=== PATIENT | male | born 1955 | race Caucasian/White ===

== ENCOUNTER 2017-06-17 01:08 | Emergency (ER) | payer OTHER ==
[2017-06-17] MEDS ORDERED: Sodium Chloride 0.9% 2.5 ML Syringe FLUSH PRN (01:13)
[2017-06-17] MEDS ORDERED: Sodium Chloride 0.9% 10 ML Syringe FLUSH PRN (01:13)
--- NOTE | 2017-06-17 01:17 | EDM.PDOC ---
ED HPI GENERAL MEDICAL PROBLEM - General Chief Complaint: Chest Pain Stated Complaint: CHEST PAIN Time Seen by Provider: 06/17/17 01:11 - History of Present Illness INITIAL COMMENTS - FREE TEXT/NARRATIVE: HISTORY AND PHYSICAL: History of present illness: The patient is a 61-year-old male who presents with a history of thyroid disease and cardiac disease with midsternal chest pain pressure that started this afternoon. He arrives via EMS after he called because it had persisted and was radiating to bilateral arms. 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 He says he had a stress test about a year ago in [facility] in [place] and it was normal. The patient says he has nitroglycerin at home to use for chest pain which he never uses but he used 2 this evening. He says the pain was there but it was dull prior to shoveling the snow and then it seemed to get worse when he was shoveling the snow. It seemed to improve when he stopped but then it restarted about 2 hours ago and that is when he took 2 nitroglycerin. He did not feel like it helped. Initially he thought the discomfort was more muscular from shoveling the snow. He has no weakness in his arms no abdominal pain no back pain but says that the upper extremity and shoulder pain seems to radiate to his upper neck. He describes the pain as midsternal and pressure-like. He rates it as a 7/10 the ER. He received aspirin via EMS but not nitroglycerin. He's been eating and drinking normally and says he has borderline high cholesterol but he manages it with his diet. He's had no vomiting or diarrhea no diaphoresis with this chest pain he is not dizzy or lightheaded. He has no leg pain or swelling. He is not sure if the chest pain radiates to her shoulders or if that's a separate entity. In the past he has had chest pain but so long ago he cannot recall the character of that. Review of systems: As per history of present illness and below otherwise all systems reviewed and negative. Past medical history: As per history of present illness and as reviewed below otherwise noncontributory. Surgical history: As per history of present illness and as reviewed below otherwise noncontributory. Social history: No reported history of drug or alcohol abuse. Family history: As per history of present illness and as reviewed below otherwise noncontributory. Physical exam: Gen.: Well-developed overweight man who is nontoxic and vital signs been reviewed by me. HEENT: Atraumatic, normocephalic, pupils reactive, negative for conjunctival pallor or scleral icterus, mucous membranes moist, throat clear, neck supple, nontender, trachea midline. Lungs: Clear to auscultation, breath sounds equal bilaterally, chest nontender. Heart: S1S2, regular, negative for clicks, rubs, or JVD. Abdomen: Soft, nondistended, nontender. Negative for masses or hepatosplenomegaly. NABS Pelvis: Stable nontender. Genitourinary: Deferred. Rectal: Deferred. Extremities: Atraumatic, negative for cords or calf pain. Neurovascular unremarkable. Pedal edema or leg asymmetry Neuro: Awake, alert, oriented. Cranial nerves II through XII unremarkable. Cerebellum unremarkable. Motor and sensory unremarkable throughout. Exam nonfocal. Skin: There is no diaphoresis, turgor is normal, no overt rashes or lesions are seen grossly Diagnostics: EKG x 2 chest x-ray CBC CMP INR troponin lipase Therapeutics: IV O2 monitor IV fluids as needed, SL nitroglycerin, please also see notes below. Patient received 4 baby aspirin per EMS prior to arrival Re Eval-after 3 sublingual nitros, the pain is now a 5/7. I will [address] nitro paste and also give a dose of Toradol and morphine as this may be muscular in etiology. We are currently awaiting his blood work. He keeps talking about how it is chest and bilateral shoulder and upper neck pain but with his history is unclear if this is cardiac driven. After the Toradol and morphine the patient says the pain is worse. His troponin has been called to us as a critical from the lab at 0.376. I will DC the Nitropaste and hang a nitro drip. I will plan on flight transfer as a non-STEMI with active chest pain. Lovenox will also be given. 0244: Case is discussed with Dr. Cruz at [facility] in [place] and he is aware of the course of these events. He accepts the transfer and flight team has been notified. He agrees with Lovenox and a nitro drip and would like me to hold the Plavix. Patient is also aware of testing results and need for transfer. Along with the nitroglycerin drip I will give him a dose of fentanyl. Critical care time excluding procedures:31min Impression: Non-STEMI VT with history of PTCA and stent, active pain Definitive disposition and diagnosis as appropriate pending reevaluation and review of above. chest Pain Score (Numeric/FACES): 6 - Related Data Allergies Allergy/AdvReac Type Severity Reaction Status Date / Time No Known Allergies Allergy Verified 06/17/17 01:12 Home Meds: Home Meds Levothyroxine 175 mcg PO ACBRK 06/17/17 [History] Medication For Heartburn 06/17/17 [History] ED ROS GENERAL - Review of Systems Review Of Systems: ROS reveals no pertinent complaints other than HPI. ED EXAM, GENERAL - Physical Exam Exam: See Below (See dictation) Course - Vital Signs Last Recorded V/S: Last Vital Signs Temp 36.0 C 06/17/17 01:14 Pulse 85 06/17/17 02:02 Resp 18 06/17/17 02:02 BP 128/84 06/17/17 02:02 Pulse Ox 98 06/17/17 02:02 - Orders/Labs/Meds Orders: Active Orders 24 hr Category Date Time Status Cardiac Monitoring [RC] . DIRECTED Care 06/17/17 01:12 Active Communication Order [RC] STAT Care 06/17/17 02:42 Ordered EKG Documentation Completion [RC] STAT Care 06/17/17 01:12 Active EKG Documentation Completion [RC] STAT Care 06/17/17 01:55 Active Oxygen Therapy, ED [RC] ASDIRECTED Care 06/17/17 01:12 Active Pulse Oximetry [RC] ASDIRECTED Care 06/17/17 01:12 Active Chest 1V Frontal [CR] Stat Exams 06/17/17 01:12 Taken Enoxaparin [Lovenox] Med 06/17/17 02:43 Once 100 mg SUBCUT ONETIME ONE Nitroglycerin/D5W [Nitroglycerin 25 MG/D5W 250 ML] 250 Med 06/17/17 02:45 Ordered ml IV TITRATE Sodium Chloride 0.9% [Normal Saline] 1,000 ml Med 06/17/17 01:46 Active IV STAT Sodium Chloride 0.9% [Saline Flush] Med 06/17/17 01:13 Active 10 ml FLUSH ASDIRECTED PRN Sodium Chloride 0.9% [Saline Flush] Med 06/17/17 01:13 Active 2.5 ml FLUSH ASDIRECTED PRN Saline Lock Insert [OM.PC] Stat Oth 06/17/17 01:12 Ordered Medication Orders Sodium Chloride (Normal Saline) 1,000 mls @ 999 mls/hr IV STAT ONE Stop: 06/17/17 02:46 Last Admin: 06/17/17 01:47 Dose: 999 mls/hr Sodium Chloride (Saline Flush) 10 ml FLUSH ASDIRECTED PRN PRN Reason: Keep Vein Open Last Admin: 06/17/17 01:10 Dose: 10 ml Sodium Chloride (Saline Flush) 2.5 ml FLUSH ASDIRECTED PRN PRN Reason: Keep Vein Open Last Admin: 06/17/17 01:10 Dose: 2.5 ml Labs: Laboratory Tests 06/17/17 06/17/17 06/17/17 Range/Units 01:20 01:20 01:20 WBC 8.14 (4.0-11.0) K/uL RBC 4.28 L (4.50-5.90) M/uL Hgb 13.6 (13.0-17.0) g/dL Hct 39.7 (38.0-50.0) % MCV 92.8 (80.0-98.0) fL MCH 31.8 (27.0-32.0) pg MCHC 34.3 (31.0-37.0) g/dL RDW Std Deviation 46.9 (28.0-62.0) fl RDW Coeff of Royce 14 (11.0-15.0) % Plt Count 186 (150-400) K/uL MPV 10.90 (7.40-12.00) fL Neut % (Auto) 54.5 (48.0-80.0) % Lymph % (Auto) 34.4 (16.0-40.0) % [place] % (Auto) 8.6 (0.0-15.0) % Eos % (Auto) 2.1 (0.0-7.0) % Baso % (Auto) 0.4 (0.0-1.5) % Neut # (Auto) 4.4 (1.4-5.7) K/uL Lymph # (Auto) 2.8 H (0.6-2.4) K/uL [place] # (Auto) 0.7 (0.0-0.8) K/uL Eos # (Auto) 0.2 (0.0-0.7) K/uL Baso # (Auto) 0.0 (0.0-0.1) K/uL Nucleated RBC % 0.0 /100WBC Nucleated RBCs # 0 K/uL INR 0.99 Sodium 139 (136-148) mmol/L Potassium 3.6 (3.5-5.1) mmol/L Chloride 105 (98-107) mmol/L Carbon Dioxide 26.5 (21.0-32.0) mmol/L BUN 20 H (7.0-18.0) mg/dL Creatinine 1.3 (0.8-1.3) mg/dL Est Cr Clr Drug Dosing 59.67 mL/min Estimated GFR (MDRD) 56.1 ml/min Glucose 146 H (74-106) mg/dL Calcium 8.5 (8.5-10.1) mg/dL Total Bilirubin 0.2 (0.2-1.0) mg/dL AST 23 (15-37) IU/L ALT 31 (14-63) IU/L Alkaline Phosphatase 43 L (46-116) U/L Troponin I 0.376 H* (0.000-0.056) ng/mL Total Protein 6.6 (6.4-8.2) g/dL Albumin 3.4 (3.4-5.0) g/dL Globulin 3.2 (2.0-3.5) g/dL Albumin/Globulin Ratio 1.1 L (1.3-2.8) Lipase 197 (73-393) U/L Meds: Medications Generic Name Dose Route Start Last Admin Trade Name Freq PRN Reason Stop Dose Admin Sodium Chloride 1,000 mls @ 999 mls/hr 06/17/17 01:46 06/17/17 01:47 Normal Saline IV 06/17/17 02:46 999 mls/hr STAT ONE Administration Sodium Chloride 10 ml 06/17/17 01:13 06/17/17 01:10 Saline Flush FLUSH 10 ml ASDIRECTED PRN Administration Keep Vein Open Sodium Chloride 2.5 ml 06/17/17 01:13 06/17/17 01:10 Saline Flush FLUSH 2.5 ml ASDIRECTED PRN Administration Keep Vein Open Discontinued Medications Generic Name Dose Route Start Last Admin Trade Name Freq PRN Reason Stop Dose Admin Ketorolac Tromethamine 30 mg 06/17/17 01:33 06/17/17 01:53 Toradol IVPUSH 06/17/17 01:34 30 mg ONETIME ONE Administration Morphine Sulfate 4 mg 06/17/17 01:33 06/17/17 02:01 Morphine IVPUSH 06/17/17 01:34 4 mg ONETIME ONE Administration Nitroglycerin 0.4 mg 06/17/17 01:12 06/17/17 01:30 Nitrostat SL 06/17/17 01:13 0.4 mg ONETIME ONE Administration Nitroglycerin 0.5 gm 06/17/17 01:33 06/17/17 01:56 Nitro-Bid 2% TOP 06/17/17 01:34 0.5 gm ONETIME ONE Administration Ondansetron HCl Confirm 06/17/17 01:44 06/17/17 01:55 Zofran Administered 06/17/17 01:45 Not Given Dose 4 mg .ROUTE .STK-MED ONE Ondansetron HCl 4 mg 06/17/17 01:46 06/17/17 01:47 Zofran IVPUSH 06/17/17 01:47 4 mg ONETIME ONE Administration Departure - Departure Time of Disposition: 02:48 Disposition: DC/Tfer to Acute Hospital 02 Condition: Good Clinical Impression: Non-STEMI (non-ST elevated myocardial infarction) - Discharge Information Forms: ED Department Discharge - My Orders Last 24 Hours: My Active Orders 06/17/17 01:12 Cardiac Monitoring [RC] . DIRECTED EKG Documentation Completion [RC] STAT Oxygen Therapy, ED [RC] ASDIRECTED Pulse Oximetry [RC] ASDIRECTED Chest 1V Frontal [CR] Stat Saline Lock Insert [OM.PC] Stat 06/17/17 01:13 Sodium Chloride 0.9% [Saline Flush] 10 ml FLUSH ASDIRECTED PRN Sodium Chloride 0.9% [Saline Flush] 2.5 ml FLUSH ASDIRECTED PRN 06/17/17 01:46 Sodium Chloride 0.9% [Normal Saline] 1,000 ml IV STAT 06/17/17 01:55 EKG Documentation Completion [RC] STAT 06/17/17 02:42 Communication Order [RC] STAT 06/17/17 02:43 Enoxaparin [Lovenox] 100 mg SUBCUT ONETIME ONE 06/17/17 02:45 Nitroglycerin/D5W [Nitroglycerin 25 MG/D5W 250 ML] 250 ml IV TITRATE - Assessment/Plan Last 24 Hours: My Active Orders 06/17/17 01:12 Cardiac Monitoring [RC] . DIRECTED EKG Documentation Completion [RC] STAT Oxygen Therapy, ED [RC] ASDIRECTED Pulse Oximetry [RC] ASDIRECTED Chest 1V Frontal [CR] Stat Saline Lock Insert [OM.PC] Stat 06/17/17 01:13 Sodium Chloride 0.9% [Saline Flush] 10 ml FLUSH ASDIRECTED PRN Sodium Chloride 0.9% [Saline Flush] 2.5 ml FLUSH ASDIRECTED PRN 06/17/17 01:46 Sodium Chloride 0.9% [Normal Saline] 1,000 ml IV STAT 06/17/17 01:55 EKG Documentation Completion [RC] STAT 06/17/17 02:42 Communication Order [RC] STAT 06/17/17 02:43 Enoxaparin [Lovenox] 100 mg SUBCUT ONETIME ONE 06/17/17 02:45 Nitroglycerin/D5W [Nitroglycerin 25 MG/D5W 250 ML] 250 ml IV TITRATE
[2017-06-17] MEDS: Nitroglycerin 0.4 MG Tab.SL SL ONE ×3 (01:18→01:30)
[2017-06-17] MEDS ORDERED: Morphine 2 MG/ML Syringe IVPUSH ONE (01:33)
[2017-06-17] MEDS ORDERED: Ketorolac 30 MG/ML SDV IVPUSH ONE (01:33)
[2017-06-17] MEDS ORDERED: Nitroglycerin 2% Oint 1 GM UD Packet TOP ONE (01:33)
[2017-06-17] MEDS ORDERED: Ondansetron 4 MG/2 ML SDV ONE (01:44)
[2017-06-17] MEDS ORDERED: Ondansetron 4 MG/2 ML SDV IVPUSH ONE (01:46)
[2017-06-17] MEDS ORDERED: Sodium Chloride 0.9% 1,000 ML IV ONE (01:46)
[2017-06-17] MEDS ORDERED: Enoxaparin 100 MG/1 ML Syringe SUBCUT ONE (02:43)
[2017-06-17] MEDS ORDERED: Nitroglycerin/D5W 25 MG/250 ML BOTTLE IV SCH (02:45)
[2017-06-17] MEDS ORDERED: fentaNYL 100 MCG/2 ML SDV IVPUSH ONE (02:46)
[2017-06-17] MEDS ORDERED: Nitroglycerin/D5W 25 MG/250 ML BOTTLE ONE (02:46)
--- NOTE | 2017-06-19 10:51 | CR ---
EXAM DATE: 06/17/17 PATIENT'S AGE: 61 Patient: YELITZA NELSON Facility: [place], [place] Site . Site : 1955 Study: XRay Chest [id number]/10/2018 1:47:30 AM Ordering Physician: Marcia Ness Final Report: INDICATION: SOB, CP Hx of thyroid treatments TECHNIQUE: Chest 1 view COMPARISON: None FINDINGS: Cardiovascular and mediastinum: Mild cardiomegaly. Postsurgical changes along the superior mediastinum. Lungs and pleural space: No focal consolidation. No sign of pleural effusion. No pneumothorax. Bones and soft tissues: No significant findings. IMPRESSION: No acute cardiopulmonary disease. Dictated by Long Jc MD @ 06/17/2017 1:54:14 AM Dictated by: Long Jc MD @ 06/17/2017 01:54:20 (Electronic Signature) Report Signed by Proxy. MTDTrey
== END 2017-06-17 03:35 ==
LOC: MW.ED 01:08
DX: I21.4 Non-ST elevation (NSTEMI) myocardial infarction (principal); E78.00 Pure hypercholesterolemia, unspecified; Z95.5 Presence of coronary angioplasty implant and graft
CPT/HCPCS: 36415; 71045; 80053; 83690; 84484; 85025; 85610; 93005; 96365; 96372; 96375; 99285; A9270; J1650; J1885; J2270; J2405; J3010; J7040

== ENCOUNTER 2017-09-14 10:03 | Emergency (ER) | payer OTHER ==
--- NOTE | 2017-09-14 10:57 | EDM.PDOC ---
ED HPI GENERAL MEDICAL PROBLEM - General Chief Complaint: Genitourinary Problem Stated Complaint: UNK Time Seen by Provider: 09/14/17 10:30 Source of Information: Reports: Patient History Limitations: Reports: No Limitations - History of Present Illness INITIAL COMMENTS - FREE TEXT/NARRATIVE: HISTORY AND PHYSICAL: History of present illness: [Patient comes to the emergency room with a complaint of right scrotal pain and penile discharge. Discharge began yesterday and is creamy to clear in color. He denies burning with urination. He is complaining of right scrotal pain and gland swelling. This presented over the last couple of days. This has been unchanged since onset. He denies fever and chills. No burning with urination blood in his urine or urinary frequency. He's been from his for some time and has had other sexual partners during this time. He also complains of some upper arm pain bilaterally. Feels like muscle tightness and strain. He had cardiac stents placed approximately one month ago per his report, and experienced similar symptoms prior to his stents. He is concerned that this could be related to his heart. He has not had any shortness of breath or difficulty breathing. He has not followed with a technical expert since this stents, as his technical expert moved away. He follows regularly at the [facility].] Review of systems: As per history of present illness and below otherwise all systems reviewed and negative. Past medical history: As per history of present illness and as reviewed below otherwise noncontributory. Surgical history: As per history of present illness and as reviewed below otherwise noncontributory. Social history: No reported history of drug or alcohol abuse. Family history: As per history of present illness and as reviewed below otherwise noncontributory. Physical exam: HEENT: Atraumatic, normocephalic. Oral mucous membranes are pink and moist. Lungs: Clear to auscultation, breath sounds equal bilaterally. Heart: S1S2, regular, negative for clicks, rubs, or JVD. Abdomen: Soft, nondistended, nontender. Pelvis: Stable nontender. Genitourinary: Uncircumcised penis, no discharge is noted. Right epididymis is tender with palpation and thickened. No abnormalities to left side. Rectal: Deferred. Extremities: Atraumatic in appearance, upper extremities are muscular and nontender with palpation. Has full range of motion to upper and lower extremities. Neurovascular unremarkable. Neuro: Awake, alert, oriented. Motor and sensory unremarkable throughout. Exam nonfocal. Diagnostics: [CBC, CMP, troponin, UA, chlamydia/gonorrhea, EKG] Therapeutics: [Rocephin 250mg IM, azithromycin 1 gram po] Impression: [Epididymitis] Plan: [Normal EKG with rate of 69. CBC and CMP are within normal limits. Urine is clear other than 3-5 white blood cells and a few bacteria. Will treat with azithromycin 1 g by mouth in the ER, and Rocephin 250 mg IM. He is urged to follow-up with his primary care. Avoid sexual contact until partners are treated. Strict return precautions reviewed. Patients in agreement with today's plan.] Definitive disposition and diagnosis as appropriate pending reevaluation and review of above. - Related Data Allergies Allergy/AdvReac Type Severity Reaction Status Date / Time No Known Allergies Allergy Verified 09/14/17 10:11 Home Meds: Home Meds Levothyroxine 175 mcg PO ACBRK 06/17/17 [History] Aspirin [Halfprin] 81 mg PO DAILY 09/14/17 [History] Clopidogrel Bisulfate [Plavix] 75 mg PO DAILY 09/14/17 [History] Metoprolol Tartrate 12.5 mg PO BID 09/14/17 [History] Prasugrel HCl [Effient] 10 mg PO DAILY 09/14/17 [History] Rosuvastatin Calcium 20 mg PO BEDTIME 09/14/17 [History] Past Medical History HEENT History: Reports: None Cardiovascular History: Reports: [place], Stents, Other (See Below) Other Cardiovascular History: stents in 2007 Respiratory History: Reports: None Gastrointestinal History: Reports: None Genitourinary History: Reports: None Musculoskeletal History: Reports: None Psychiatric History: Reports: None Endocrine/Metabolic History: Reports: Hyperthyroidism, Other (See Below) Other Endocrine/Metabolic History: thyroid surgery Hematologic History: Reports: None - Infectious Disease History Infectious Disease History: Reports: Chicken Pox, Mumps Social & Family History - Family History Family Medical History: Noncontributory - Tobacco Use Smoking Status *Q: Never Smoker Second Hand Smoke Exposure: No - Caffeine Use Caffeine Use: Reports: None - Recreational Drug Use Recreational Drug Use: No ED ROS GENERAL - Review of Systems Review Of Systems: ROS reveals no pertinent complaints other than HPI. ED EXAM, RENAL/ - Physical Exam Exam: See Below Course - Vital Signs Last Recorded V/S: Last Vital Signs Temp 96.6 F 09/14/17 10:09 Pulse 87 09/14/17 10:09 Resp 18 09/14/17 10:09 BP 140/75 09/14/17 10:09 Pulse Ox 95 09/14/17 10:09 - Orders/Labs/Meds Orders: Active Orders 24 hr Category Date Time Status EKG Documentation Completion [RC] STAT Care 09/14/17 10:36 Active CHLAMYDIA AND GONORRHEA BY TMA Stat Lab 09/14/17 11:20 Received UA W/MICROSCOPIC [URIN] Stat Lab 09/14/17 11:20 Ordered Azithromycin [Zithromax] Med 09/14/17 12:14 Once 1,000 mg PO Q24H ONE cefTRIAXone [Rocephin] 250 mg Med 09/14/17 12:14 Ordered Lidocaine 1% [Xylocaine-MPF 1%] 1 ml IM ONETIME Labs: Laboratory Tests 09/14/17 09/14/17 09/14/17 Range/Units 10:42 10:42 11:20 WBC 7.32 (4.0-11.0) K/uL RBC 4.61 (4.50-5.90) M/uL Hgb 14.9 (13.0-17.0) g/dL Hct 42.3 (38.0-50.0) % MCV 91.8 (80.0-98.0) fL MCH 32.3 H (27.0-32.0) pg MCHC 35.2 (31.0-37.0) g/dL RDW Std Deviation 43.9 (28.0-62.0) fl RDW Coeff of Royce 13 (11.0-15.0) % Plt Count 203 (150-400) K/uL MPV 11.10 (7.40-12.00) fL Neut % (Auto) 59.9 (48.0-80.0) % Lymph % (Auto) 28.7 (16.0-40.0) % [place] % (Auto) 9.7 (0.0-15.0) % Eos % (Auto) 1.6 (0.0-7.0) % Baso % (Auto) 0.1 (0.0-1.5) % Neut # (Auto) 4.4 (1.4-5.7) K/uL Lymph # (Auto) 2.1 (0.6-2.4) K/uL [place] # (Auto) 0.7 (0.0-0.8) K/uL Eos # (Auto) 0.1 (0.0-0.7) K/uL Baso # (Auto) 0.0 (0.0-0.1) K/uL Nucleated RBC % 0.0 /100WBC Nucleated RBCs # 0 K/uL Sodium 139 (136-148) mmol/L Potassium 4.0 (3.5-5.1) mmol/L Chloride 104 (98-107) mmol/L Carbon Dioxide 25.5 (21.0-32.0) mmol/L BUN 18 (7.0-18.0) mg/dL Creatinine 1.5 H (0.8-1.3) mg/dL Est Cr Clr Drug Dosing 51.72 mL/min Estimated GFR (MDRD) 47.6 ml/min Glucose 140 H (74-106) mg/dL Calcium 8.8 (8.5-10.1) mg/dL Total Bilirubin 0.6 (0.2-1.0) mg/dL AST 21 (15-37) IU/L ALT 35 (14-63) IU/L Alkaline Phosphatase 51 (46-116) U/L Troponin I < 0.050 (0.000-0.056) ng/mL Total Protein 7.1 (6.4-8.2) g/dL Albumin 3.7 (3.4-5.0) g/dL Globulin 3.4 (2.0-3.5) g/dL Albumin/Globulin Ratio 1.1 L (1.3-2.8) Urine Color YELLOW Urine Appearance CLEAR Urine pH 6.0 (5.0-8.0) Ur Specific [place] 1.020 (1.001-1.035) Urine Protein NEGATIVE (NEGATIVE) mg/dL Urine Glucose (UA) NEGATIVE (NEGATIVE) mg/dL Urine Ketones NEGATIVE (NEGATIVE) mg/dL Urine Occult Blood NEGATIVE (NEGATIVE) Urine Nitrite NEGATIVE (NEGATIVE) Urine Bilirubin NEGATIVE (NEGATIVE) Urine Urobilinogen 0.2 (<2.0) EU/dL Ur Leukocyte Esterase TRACE (NEGATIVE) Urine RBC 0-2 (0-2/HPF) Urine WBC 3-5 (0-5/HPF) Ur Epithelial Cells OCCASIONAL (NONE-FEW) Urine Bacteria RARE (NEGATIVE) Departure - Departure Time of Disposition: 12:16 Disposition: Home, Self-Care 01 Condition: Good Clinical Impression: Epididymitis - Discharge Information Referrals: PCP,None [Primary Care Provider] - Forms: ED Department Discharge Additional Instructions: The following information is given to patients seen in the emergency department who are being discharged to home. This information is to outline your options for follow-up care. We provide all patients seen in our emergency department with a follow-up referral. The need for follow-up, as well as the timing and circumstances, are variable depending upon the specifics of your emergency department visit. If you don't have a primary care physician on staff, we will provide you with a referral. We always advise you to contact your personal physician following an emergency department visit to inform them of the circumstance of the visit and for follow-up with them and/or the need for any referrals to a consulting specialist. The emergency department will also refer you to a specialist when appropriate. This referral assures that you have the opportunity for follow-up care with a specialist. All of these measure are taken in an effort to provide you with optimal care, which includes your follow-up. Under all circumstances we always encourage you to contact your private physician who remains a resource for coordinating your care. When calling for follow-up care, please make the office aware that this follow-up is from your recent emergency room visit. If for any reason you are refused follow-up, please contact the [facility] emergency department at and asked to speak to the emergency department charge nurse. [facility] [address] [place] [id number] Follow up with your local primary care provider at the clinic listed above in 48 -72 hours. Continue to monitor symptoms. Tylenol or ibuprofen as needed for discomfort. Return to ER as needed as discussed. - My Orders Last 24 Hours: My Active Orders 09/14/17 10:36 EKG Documentation Completion [RC] STAT 09/14/17 11:20 CHLAMYDIA AND GONORRHEA BY TMA Stat UA W/MICROSCOPIC [URIN] Stat 09/14/17 12:14 Azithromycin [Zithromax] 1,000 mg PO Q24H ONE cefTRIAXone [Rocephin] 250 mg Lidocaine 1% [Xylocaine-MPF 1%] 1 ml IM ONETIME - Assessment/Plan Last 24 Hours: My Active Orders 09/14/17 10:36 EKG Documentation Completion [RC] STAT 09/14/17 11:20 CHLAMYDIA AND GONORRHEA BY TMA Stat UA W/MICROSCOPIC [URIN] Stat 09/14/17 12:14 Azithromycin [Zithromax] 1,000 mg PO Q24H ONE cefTRIAXone [Rocephin] 250 mg Lidocaine 1% [Xylocaine-MPF 1%] 1 ml IM ONETIME
[2017-09-14 11:26] LABS: CHLORIDE,CL 104 mmol/L (98-107); SODIUM,NA 139 mmol/L (136-148)
[2017-09-14] MEDS ORDERED: Azithromycin 250 MG Tab PO ONE (12:14)
[2017-09-14] MEDS ORDERED: cefTRIAXone 250 MG in Lidocaine 1% 1 ML IM ONE (12:14)
== END 2017-09-14 12:48 | disposition home or self-care (01) ==
LOC: MW.ED 10:03
DX: N45.1 Epididymitis (principal); Z79.82 Long term (current) use of aspirin; Z79.899 Other long term (current) drug therapy
CPT/HCPCS: 36415; 80053; 81001; 84484; 85025; 87491; 87591; 93005; 96372; 99283; A9270; J0696; J2001